=== PATIENT | female | born 1950 | race Caucasian/White ===

== ENCOUNTER → 2023-02-04 | Outpatient (CLI) | payer MEDICARE, OTHER | LOC: CT 16:14 | PROVIDERS: ATTEND Family Medicine | DX: Z12.2 Encounter for screening for malignant neoplasm of respiratory organs (principal); Z72.0 Tobacco use | CPT/HCPCS: 71250 ==

== ENCOUNTER 2025-08-03 15:26 | Inpatient (IN) | payer MEDICARE, OTHER ==
[~2025-08-03] VITALS: Ht 162.6 cm; Wt 72.6 kg
[2025-08-03] MEDS ORDERED: IOPAMIDOL 370 MG/ML 100 ML INFUS..BTL INJ ONE (16:26)
[2025-08-03] MEDS ORDERED: SODIUM CHLORIDE 0.9% 1000ML 1,000 ML ONE (16:34)
[2025-08-03] MEDS: SODIUM CHLORIDE 0.9% 1000ML 1,000 ML IV SCH ×2 (16:38→21:28)
[2025-08-03 18:00] VITALS: PULSE 80; RESP 17; TEMP 98.1
[2025-08-03 20:00] VITALS: BP 139/77; PULSE 79; RESP 18; TEMP 97.3; O2SAT 97
[2025-08-03 20:46] VITALS: BP 137/71; PULSE 79; RESP 18; TEMP 97.3; O2SAT 94
[2025-08-03] MEDS: NICOTINE 7 MG PATCH TOP SCH (21:23)
[2025-08-03] MEDS ORDERED: AMLODIPINE BESYL5 MG PO (22:37)
[2025-08-03] MEDS ORDERED: AMITRIPTYLINE H25 MG PO (22:37)
[2025-08-03] MEDS ORDERED: LOVASTATIN40 MG PO (22:37)
[2025-08-03] MEDS: KETOROLAC TROMETHAMINE 30 MG/ML VIAL IV ONE (23:33)
[2025-08-03] MEDS: AMITRIPTYLINE HCL 25 MG TAB PO ONE (23:34)
[2025-08-04] VITALS (11 sets, daily range): BP systolic 110–131; BP diastolic 59–88; PULSE 64–90; RESP 16–22; TEMP 97–98.9; O2SAT 91–100
[2025-08-04] MEDS: ALBUTEROL/IPRATROPIUM 3 ML NEB NEB PRN (01:09)
[2025-08-04] MEDS ORDERED: DOCUSATE SODIUM 100 MG CAP PO PRN (01:45)
[2025-08-04] MEDS ORDERED: MAGNESIUM/ALUMINUM/SIMETHICONE 30 ML UDC PO PRN (01:45)
[2025-08-04] MEDS ORDERED: MELATONIN 3 MG TAB PO PRN (01:45)
[2025-08-04] MEDS ORDERED: HYDRALAZINE HCL 20 MG/ML VIAL IV PRN (01:45)
[2025-08-04] MEDS ORDERED: ONDANSETRON HCL INJ 2MG/ML 2ML 2 MG/ML VIAL IV PRN (01:45)
[2025-08-04] MEDS ORDERED: ACETAMINOPHEN 325 MG TAB PO PRN (01:45)
[2025-08-04 05:36] LABS: BASOPHILS % 0.5 % (0.0-1.0); EOSINOPHILS % 0.7 % (0.0-6.0); LYMPHOCYTES % 17.8 % (18.0-39.1); MONOCYTES % 14.0 % (4.4-11.3); NEUTROPHILS % 66.1 % (38.7-80.0); RED CELL DISTRIBUTION WIDTH 12.5 % (11.7-14.4)
[2025-08-04 06:01] LABS: EST GLOMERULAR FILTRATION RATE 92.0 ML/MIN (>=60)
[2025-08-04] MEDS: SIMVASTATIN 20 MG TAB PO SCH (07:53)
[2025-08-04] MEDS: AMLODIPINE BESYLATE 5 MG TAB PO SCH (07:53)
[2025-08-04] MEDS: MULTIVITAMINS/MINERALS TAB PO SCH (07:53)
[2025-08-04] MEDS: AMITRIPTYLINE HCL 25 MG TAB PO SCH (07:54)
[2025-08-04] MEDS: GUAIFENESIN/DEXTROMETHORPHAN LIQD 5 ML UDC PO PRN (07:59)
[2025-08-04] MEDS: TRAMADOL HCL 50 MG TAB PO PRN (07:59)
[2025-08-04] MEDS ORDERED: PROAIR DIGIHAL90 MCG INH (13:54)
[2025-08-04] MEDS ORDERED: NICOTINE PATCH1 EAC1 TOP (13:54)
[2025-08-04] MEDS ORDERED: AZITHROMYCIN250 MG PO (13:54)
[2025-08-04] MEDS ORDERED: CEFPODOXIME PR200 MG PO (13:54)
[2025-08-04] MEDS ORDERED: PREDNISONE20 MG PO (13:54)
[2025-08-04] MEDS: POTASSIUM CHLORIDE 20 MEQ TAB CR PO ONE (13:57)
[2025-08-04] MEDS: ENOXAPARIN SOD INJ 40 MG/0.4 ML SYR SC SCH (16:42)
[2025-08-11 08:59] LABS: HEPATITIS A ANTIBODY IGM (P) Negative; HEPATITIS B CORE IGM (P) Negative; HEPATITIS B SURFACE AG (P) Negative
== END 2025-08-04 18:15 | disposition home or self-care (01) | DRG 194 ==
LOC: FSED 15:40 → ERHOLD 17:56 → MED/SURG2 19:15
PROVIDERS: ADMIT Internal Medicine; ATTEND Internal Medicine
DX: J18.9 Pneumonia, unspecified organism (principal); K86.2 Cyst of pancreas; I10 Essential (primary) hypertension; E78.00 Pure hypercholesterolemia, unspecified; D72.829 Elevated white blood cell count, unspecified; R74.01 Elevation of levels of liver transaminase levels; J45.909 Unspecified asthma, uncomplicated; Z72.0 Tobacco use; Z88.5 Allergy status to narcotic agent
CPT/HCPCS: 36415; 71046; 71260; 76705; 80048; 80053; 82550; 83880; 84484; 85025; 85379; 87040; 93005; 94640; 94799; 99284; J0696; J1885; J7030; J7050; Q9967